=== PATIENT | male | born 1960 | race Caucasian/White ===

== ENCOUNTER 2017-07-04 13:41 | Outpatient (CLI) | payer BC ==
--- NOTE | 2017-07-04 14:32 | RAD ---
PA AND LATERAL CHEST: Date: 07/04/17 HISTORY: Cough and congestion. COMPARISON: 08/10/12. FINDINGS: Heart size is within normal limits. There are atherosclerotic changes of the aorta. The lungs are sathish ar of infiltrates. IMPRESSION: No active intrathoracic disease. POS: [facility]
== END 2017-07-04 13:42 | disposition home or self-care (01) ==
LOC: SCSRAD 13:41
PROVIDERS: ATTEND Family Medicine
DX: J20.9 Acute bronchitis, unspecified (principal)
CPT/HCPCS: 71046

== ENCOUNTER 2017-07-22 15:25 | Outpatient (CLI) | payer BC | END 2017-07-22 15:26 | disposition home or self-care (01) | LOC: BICULT 15:25 | PROVIDERS: ATTEND Family Medicine | DX: R31.29 Other microscopic hematuria (principal); N28.1 Cyst of kidney, acquired; N26.1 Atrophy of kidney (terminal) | CPT/HCPCS: 76770 ==

== ENCOUNTER 2018-04-20 08:30 | Inpatient (IN) | payer BC ==
[2018-05-02] MEDS ORDERED: Levofloxacin 500 mg/D5W 100 ml Premix Bag ONE (06:08)
[2018-05-02] MEDS ORDERED: Sodium Chloride 0.9% 100 ML ONE (06:08)
[2018-05-02] MEDS ORDERED: Tranexamic Acid 1,000 MG/10 ML VIAL ONE (06:08)
[2018-05-02] MEDS ORDERED: Vancomycin HCl 1.5 GM in Sodium Chloride 0.9% 250 ML 300 ML IVPB SCH ×2 (06:15→20:00)
[2018-05-02] MEDS ORDERED: Fentanyl 100 MCG/2 ML VIAL ONE (06:37)
[2018-05-02] MEDS ORDERED: Midazolam HCl 2 mg/2 ml Vial ONE (06:37)
[2018-05-02] MEDS ORDERED: Naloxone HCl 0.4 mg/ml Vial IVP PRN (07:30)
[2018-05-02] MEDS ORDERED: diphenhydrAMINE 50 MG/ML VIAL IM PRN (07:30)
[2018-05-02] MEDS ORDERED: Promethazine HCl 25 MG/ML VIAL IM PRN ×3 (07:30→11:03)
[2018-05-02] MEDS ORDERED: traMADol HCl 50 MG TAB PO PRN (07:30)
[2018-05-02] MEDS ORDERED: Zolpidem Tartrate 5 MG TAB PO PRN ×2 (07:30→11:03)
[2018-05-02] MEDS ORDERED: Promethazine HCl 25 MG SUPP PR PRN (07:30)
[2018-05-02] MEDS ORDERED: Bupivacaine 0.25% 10 ML VIAL EPIDURAL PRN (07:30)
[2018-05-02] MEDS ORDERED: diphenhydrAMINE 25 MG CAP PO PRN ×2 (07:30→11:03)
[2018-05-02] MEDS ORDERED: HYDROcodone/Acetaminophen 5/325 mg Tablet PO PRN (07:30)
[2018-05-02] MEDS ORDERED: Hydrocerin (Eucerin) Cream 120 gm Jar TOP PRN (07:30)
[2018-05-02] MEDS ORDERED: diphenhydrAMINE 50 MG/ML VIAL IVP PRN (07:30)
[2018-05-02] MEDS ORDERED: Ondansetron PF 4 MG/2 ML Vial IVP PRN ×2 (07:30→11:03)
[2018-05-02] MEDS ORDERED: Naloxone HCl 0.4 mg/ml Vial IV PRN (07:30)
[2018-05-02] MEDS ORDERED: Promethazine HCl 25 MG/ML VIAL SLOW IVP PRN (08:00)
[2018-05-02] MEDS ORDERED: Ondansetron HCl/PF 4 MG/2 ML Vial IVP PRN (08:00)
[2018-05-02] MEDS ORDERED: HYDROcodone/Acetaminophen 10/325 mg Tablet PO PRN ×2 (11:03)
[2018-05-02] MEDS ORDERED: Fentanyl 100 MCG/2 ML VIAL SLOW IVP PRN ×2 (11:03)
--- NOTE | 2018-05-02 13:11 | RAD ---
LEFT HIP THREE VIEWS: INDICATIONS: Postop left hip. COMPARISON: Prior exam dated 07/18/2012. FINDINGS: Since the comparison examination, there has been revision of the femoral prosthetic component of the left total hip arthroplasty. There are cerclage bands surrounding the proximal trochanteric portion and proximal femoral stent portions of the femoral prosthesis. The acetabular cup has also been revi sed and is now a Press-fit cup. There is soft tissue gas within the periarticular soft tissues. IMPRESSION: Revision of left total hip arthroplasty. POS: [facility]
[2018-05-02] MEDS ORDERED: fentaNYL 100 mcg/hour Patch TD SCH (14:00)
--- NOTE | 2018-05-02 14:35 | OP ---
DATE OF PROCEDURE: 05/02/2018 PREOPERATIVE DIAGNOSIS: Failed left total hip replacement. POSTOPERATIVE DIAGNOSIS: Failed left total hip replacement. PROCEDURE PERFORMED: Left total hip arthroplasty revision. OUTPATIENT FACILITY PHYSICAL THERAPIST: Roni Loza PA-C BLOOD LOSS: 500. SPECIMENS: None. DRAINS: None. COMPLICATIONS: None. IMPLANTS USED: A 155 x 16 Buddhist modular stem with a +20 body and -2.7 ceramic head with a MDM head and a size 56 acetabulum with MDM liner. DESCRIPTION OF PROCEDURE: The patient was taken to the operating room, where general anesthesia was induced. He was placed in a right lateral decubitus position. His left leg was prepped in sterile fashion. He had multiple scars in his leg that shows most appropriate scar for the incision, which was more anterior one. This was carried down. The IT band was divided distally and extended proximally. Self-retaining retractors was placed in the wound, taking down the anterior one-third of the abductor mechanism. Capsular tissue was excised. The hip was dislocated. Stem, although had a fluid wave, but was not super well fixed, could not be extracted using flexible osteotomes and stem extractor devices. Therefore, I performed extended trochanteric osteotomy. This facilitated removal of the stem. I then repaired the osteotomy and also placed a prophylactic cable around the intact part of the femur to ascertain the acetabulum. I removed the acetabular liner. I removed the screws and then used an Innomed cup extractor to remove the acetabulum. There was some bony erosion on the femur and around particularly the inferior aspect of the acetabulum. I reamed up to a size 57, impacted a 58 cup. We got good purchase and screw fixation. MDM liner was deployed. Attention was turned back to the femur. I placed a +10 head and neck replacement body and this gave a great leg length. However, his hip was unstable and external rotation in neutral position. I dislocated the hip. I made sure all scar tissue was removed from the posterior aspect of the acetabulum. I trimmed the posterior aspect of the greater trochanter as much as possible. There was really no significant osteophytes on the pelvis. Still the hip was unstable, so I had to go to a +20 body and this gave very good stability. However, his leg length was off. I used a -2.7 ceramic head, as this was the shortest head I could get for this implant. The ceramic head was impacted in place. The hip was reduced. Fixed the trochanter to the head and neck replacement body with Dall-Miles cables. Irrigation was performed. Abductors were repaired with #2 Vicryl. IT band was repaired with #2 Vicryl and #2 Quill, subcu closed with 0 Quill, and skin was closed with 2-0 Monoderm. Skin glue was applied and sterile dressing was applied. Job ID: [id number]
--- NOTE | 2018-05-02 14:37 | PDOC.PN ---
- Subjective Encounter Start Date: 05/02/18 Encounter Start Time: 14:30 Subjective: no sob or chest pain -: is post op, alert and oriented -: OT is here to work with him - Objective MAR Reviewed: Yes Vital Signs & Weight: Weight Weight 200 lb Phys Exam - Physical Examination HEENT: PERRLA, moist MMs Neck: no JVD, supple Respiratory: no wheezing, no rales Cardiovascular: RRR, no significant murmur Gastrointestinal: soft, non-tender, positive bowel sounds Musculoskeletal: no edema, pulses present left hip lat area dressing is clean Neurological: non-focal, moves all 4 limbs Psychiatric: normal affect, A&O x 3 Dx/Plan (1) s/p left hip total hip arthroplasty Status: Acute (2) GERD (gastroesophageal reflux disease) Code(s): K21.9 - GASTRO-ESOPHAGEAL REFLUX DISEASE WITHOUT ESOPHAGITIS Status: Chronic Qualifiers: Esophagitis presence: with esophagitis Qualified Code(s): K21.0 - Gastro- esophageal reflux disease with esophagitis (3) Dyslipidemia Code(s): E78.5 - HYPERLIPIDEMIA, UNSPECIFIED Status: Chronic (4) HTN (hypertension) Code(s): I10 - ESSENTIAL (PRIMARY) HYPERTENSION Status: Chronic Qualifiers: Hypertension type: essential hypertension Qualified Code(s): I10 - Essential (primary) hypertension - Plan post op recovering well -: continue tricor, norvasc and losartan -: hold hctz for now -: on asp bid, marcaine nr block, fentanyl prn -: will f/u * . Review of Systems - Medications/Allergies Allergies/Adverse Reactions: Allergies Allergy/AdvReac Type Severity Reaction Status Date / Time NSAIDS (Non-Steroidal Allergy stomach Verified 05/02/18 12:58 Anti-Inflamma ulcers Penicillins Allergy Hives Verified 05/02/18 12:58 Medications: Current Medications Acetaminophen (Tylenol) 650 mg PO Q4H PRN PRN Reason: Headache/Fever or Pain Hydrocodone Bitart/Acetaminophen ([place] 5/325) 1 tab PO Q4H PRN PRN Reason: Mild Pain 0-3 Hydrocodone Bitart/Acetaminophen ([place] 5/325) 2 tab PO Q4H PRN PRN Reason: For Moderate Pain 4-6 Hydrocodone Bitart/Acetaminophen ([place] 10/325) 1 tab PO Q4H PRN PRN Reason: Moderate Pain (4-6) Hydrocodone Bitart/Acetaminophen ([place] 10/325) 2 tab PO Q4H PRN PRN Reason: Severe Pain (7-10) Amlodipine Besylate (Norvasc) 5 mg PO QAM [facility] Aspirin (Ecotrin) 81 mg PO BID [facility] Bupivacaine HCl (Marcaine) 5 ml EPIDURAL ONE PRN PRN Reason: UNCONTROLLED PAIN Stop: 05/02/18 23:00 Diphenhydramine HCl (Benadryl) 25 mg IM Q3H PRN PRN Reason: Itching Diphenhydramine HCl (Benadryl) 25 mg IVP Q3H PRN PRN Reason: Itching Diphenhydramine HCl (Benadryl) 25 mg PO Q6H PRN PRN Reason: Itching Emollient Cream (Hydrocerin Cream) 0 gm TOP PRN PRN PRN Reason: Itching Fenofibrate (Tricor) 145 mg PO HS JAY[facility] Fentanyl (Sublimaze) 50 mcg SLOW IVP Q30MIN PRN PRN Reason: Moderate Pain (4-6) Fentanyl (Sublimaze) 100 mcg SLOW IVP Q1H PRN PRN Reason: Severe Pain (7-10) Fentanyl (Duragesic) 100 mcg TD Q2D [facility] Ferrous Gluconate (Fergon) 324 mg PO BID JAYME HCTZ/Losartan Potassium (Hyzaar 100/25) 1 tab PO QAM JAYME Fentanyl Citrate (Fentanyl/Bupivacaine) 100 mls @ 0 mls/hr EPIDURAL INF [facility] Levofloxacin 500 mg/ Device 100 mls @ 100 mls/hr IVPB Q24H [facility] Stop: 05/02/18 14:59 Sodium Chloride (Normal Saline 0.9%) 1,000 mls @ 100 mls/hr IV .Q10H JAYME Vancomycin HCl 1.5 gm/ Sodium (Chloride) 300 mls @ 200 mls/hr IVPB ONE [facility] Stop: 05/02/18 21:29 Iron/Minerals/Multivitamins (Theragran M) 1 tab PO DAILY J[facility] Loratadine (Claritin) 10 mg PO DAILY [facility] Miscellaneous Information (Communication Order-Pharmacy) 1 each FS ASDIR JAYME Naloxone HCl (Narcan) 0.2 mg IV Q5MIN PRN PRN Reason: RR <=8 OR OBTUNDED/UNAROUSABLE Naloxone HCl (Narcan) 0.1 mg IVP Q15MIN PRN PRN Reason: URINARY RETENTION Ondansetron HCl (Zofran) 4 mg IVP Q6H PRN PRN Reason: Nausea/Vomiting Pantoprazole Sodium (Protonix) 40 mg PO QAM JAYME [Testosterone] 1 (Pump) 0 each TOP DAILY JAYME Promethazine HCl (Phenergan) 12.5 mg IM Q4H PRN PRN Reason: Nausea Promethazine HCl (Phenergan Suppository) 25 mg MT Q4H PRN PRN Reason: Nausea/Vomiting Senna/Docusate Sodium (Senokot S) 2 tab PO BID [facility] Sodium Chloride (Flush - Normal Saline) 10 ml IVF PRN PRN PRN Reason: Saline Flush Tramadol HCl (Ultram) 50 mg PO Q6H PRN PRN Reason: Mild Pain 1-3 Tramadol HCl (Ultram) 100 mg PO Q6H PRN PRN Reason: Moderate Pain 4-6 Zolpidem Tartrate (Ambien) 5 mg PO HSPRN PRN PRN Reason: Insomnia
[2018-05-02] MEDS: Sodium Chloride 0.9% 1,000 ML IV SCH ×2 (15:12→23:42)
[2018-05-02] MEDS: HYDROcodone/Acetaminophen 5/325 mg Tablet PO PRN (16:02)
[2018-05-02] MEDS: Aspirin 81 mg Enteric Coated Tablet PO SCH (20:06)
[2018-05-02] MEDS: Senokot S 8.6-50 MG TAB PO SCH (20:06)
[2018-05-02] MEDS: Ferrous Gluconate 324 MG TAB PO SCH (20:07)
[2018-05-02] MEDS ORDERED: Lidocaine 1% PF 5 ML VIAL ONE (21:21)
[2018-05-02] MEDS ORDERED: PROPOFOL 200 MG/20 ML VIAL ONE (21:21)
[2018-05-02] MEDS ORDERED: Glycopyrrolate 0.2 MG/ML 5 ML SYRINGE ONE (21:21)
[2018-05-02] MEDS ORDERED: ePHEDrine/0.9% NaCl/PF SYRINGE 50 mg/10 ml ONE (21:21)
[2018-05-02] MEDS: Fenofibrate Nanocrystallized 145 MG TAB PO SCH (21:25)
[2018-05-02] MEDS: Acetaminophen 325 MG TAB PO PRN (22:52)
[2018-05-02] MEDS: Fentanyl/Bupivacaine 100 ML EPIDURAL SCH (23:30)
[2018-05-03] MEDS: Fentanyl/Bupivacaine 100 ML EPIDURAL SCH ×3 (04:04→22:58)
[2018-05-03 05:47] LABS: Hemoglobin 9.7 g/dL (14.0-18.0); Mean Corpuscular HGB CONC 33.2 g/dL (32.0-36.0); Mean Corpuscular Hemoglobin 28.9 pg (27.0-31.0); Mean Corpuscular Volume 87.1 fL (78.0-98.0); Mean Platelet Volume 7.9 fL (7.4-10.4); Platelet Count 211 thou/uL (130-400); RBC Distribution Width 13.2 % (11.5-14.5); Red Blood Cell (RBC) Count 3.36 mill/uL (4.70-6.10); White Blood Cell (WBC) Count 6.8 thou/uL (4.8-10.8)
[2018-05-03] MEDS: traMADol HCl 50 MG TAB PO PRN (06:11)
[2018-05-03] MEDS ORDERED: fentaNYL 100 mcg/hour Patch TD SCH ×2 (06:30→09:00)
[2018-05-03] MEDS ORDERED: Eucerin (Mineral Oil/Petrolatum,White) 30 gm Jar TOP PRN (07:40)
[2018-05-03] MEDS ORDERED: Artificial Tears 18 DROP/0.9 ML EA EYE PRN (07:40)
[2018-05-03] MEDS ORDERED: Loperamide HCl 2 MG CAP PO PRN (07:40)
[2018-05-03] MEDS ORDERED: hydrALAZINE 20 MG/ML VIAL SLOW IVP PRN (07:40)
[2018-05-03] MEDS ORDERED: Cepastat Lozenges 1 LOZ PO PRN (07:40)
[2018-05-03] MEDS ORDERED: Diabetic Tussin 200 MG/10 ML UDCUP PO PRN (07:40)
[2018-05-03] MEDS: HYDROcodone/Acetaminophen 5/325 mg Tablet PO PRN ×4 (08:07→22:10)
[2018-05-03] MEDS: Amlodipine 5 MG TAB PO SCH (08:18)
[2018-05-03] MEDS: Aspirin 81 mg Enteric Coated Tablet PO SCH ×2 (08:18→20:37)
[2018-05-03] MEDS: Senokot S 8.6-50 MG TAB PO SCH ×2 (08:20→20:37)
[2018-05-03] MEDS: Multivitamin W/ Minerals 1 TAB PO SCH (08:21)
[2018-05-03] MEDS: Ferrous Gluconate 324 MG TAB PO SCH ×2 (08:21→20:37)
[2018-05-03] MEDS ORDERED: PUMP TOP SCH (09:00)
[2018-05-03] MEDS ORDERED: [UNRECOGNIZED DRUG - REMARK] PO SCH (09:00)
[2018-05-03] MEDS ORDERED: TESTOSTERONE PUMP TOP SCH (09:00)
--- NOTE | 2018-05-03 09:46 | PDOC.PN ---
- Subjective Encounter Start Date: 05/03/18 Encounter Start Time: 08:20 -: old records requested/rev Patient seen and examined. No overnight events he has burning discomfort at surgical site, he has fever - Objective Resuscitation Status - Order Detail: 05/03/18 07:38 Resuscitation Status Routine Resuscitation Status: FULL: Full Resuscitation MAR Reviewed: Yes Vital Signs & Weight: Vital Signs (12 hours) Temp Pulse Resp BP Pulse Ox 05/03/18 08:32 99.6 F 86 18 112/67 93 L 05/03/18 08:18 91 05/03/18 04:15 99.8 F H 05/03/18 03:58 100.1 F H 91 22 H 112/68 94 L 05/03/18 00:27 100.5 F H 94 20 121/76 95 Weight Weight 200 lb I&O: 05/02/18 05/03/18 05/04/18 06:59 06:59 06:59 Intake Total 3450 Output Total 3500 Balance -50 Result Diagrams: 05/03/18 05:23 Radiology Reviewed by me: Yes (Hip xray reviewed) Phys Exam - Physical Examination Constitutional: NAD HEENT: PERRLA, moist MMs, sclera anicteric Neck: no JVD, supple Respiratory: no wheezing, no rales, no rhonchi Cardiovascular: RRR, no significant murmur, no rub Gastrointestinal: soft, non-tender, no distention, positive bowel sounds Musculoskeletal: no edema, pulses present surgical site with dressing, epidural in place guzman+ Neurological: non-focal, normal sensation, moves all 4 limbs Lymphatic: no nodes Psychiatric: normal affect, A&O x 3 Skin: no rash, normal turgor Dx/Plan (1) Anemia, normocytic normochromic Code(s): D64.9 - ANEMIA, UNSPECIFIED Status: Acute Comment: post operative blood loss (2) Fever Code(s): R50.9 - FEVER, UNSPECIFIED Status: Acute (3) Status post total hip replacement, left Code(s): Z96.642 - PRESENCE OF LEFT ARTIFICIAL HIP JOINT Status: Acute (4) Dyslipidemia Code(s): E78.5 - HYPERLIPIDEMIA, UNSPECIFIED Status: Chronic (5) GERD (gastroesophageal reflux disease) Code(s): K21.9 - GASTRO-ESOPHAGEAL REFLUX DISEASE WITHOUT ESOPHAGITIS Status: Chronic Qualifiers: Esophagitis presence: with esophagitis Qualified Code(s): K21.0 - Gastro- esophageal reflux disease with esophagitis (6) HTN (hypertension) Code(s): I10 - ESSENTIAL (PRIMARY) HYPERTENSION Status: Chronic Qualifiers: Hypertension type: essential hypertension Qualified Code(s): I10 - Essential (primary) hypertension (7) Tobacco abuse Code(s): Z72.0 - TOBACCO USE Status: Chronic - Plan cont current plan of care, PT/OT * continue aspirin for DVT prophylaxis * continue PT as per [facility] protocol treatment * epidural as per anesthesia * discharge per primary team * medically stable * medication reviewed as below * symptomatic treatment * pain controlled * code status addressed and he is full code.. * home medication reconciled * hold BP meds for SBP <120 * if recurrent fever, then will check culture Review of Systems - Review of Systems Constitutional: fever. negative: chills, sweats, weakness, malaise, other ENT: negative: Ear Pain, Ear Discharge, Nose Pain, Nose Discharge, Nose Congestion, Mouth Pain, Mouth Swelling, Throat Pain, Throat Swelling, Other Respiratory: negative: Cough, Dry, Shortness of Breath, Hemoptysis, SOB with Excertion, Pleuritic Pain, Sputum, Wheezing Cardiovascular: negative: chest pain, palpitations, orthopnea, paroxysmal nocturnal dyspnea, edema, light headedness, other Gastrointestinal: negative: Nausea, Vomiting, Abdominal Pain, Diarrhea, Constipation, Melena, Hematochezia, Other Genitourinary: negative: Dysuria, Frequency, Incontinence, Hematuria, Retention , Other Musculoskeletal: negative: Neck Pain, Shoulder Pain, Arm Pain, Back Pain, Hand Pain, Leg Pain, Foot Pain, Other Skin: negative: Rash, Lesions, Chun, Bruising, Other - Medications/Allergies Allergies/Adverse Reactions: Allergies Allergy/AdvReac Type Severity Reaction Status Date / Time NSAIDS (Non-Steroidal Allergy stomach Verified 05/02/18 12:58 Anti-Inflamma ulcers Penicillins Allergy Hives Verified 05/02/18 12:58 Medications: Current Medications Acetaminophen (Tylenol) 650 mg PO Q4H PRN PRN Reason: Headache/Fever or Pain Last Admin: 05/02/18 22:52 Dose: 650 mg Hydrocodone Bitart/Acetaminophen ([place] 5/325) 1 tab PO Q4H PRN PRN Reason: Mild Pain 0-3 Hydrocodone Bitart/Acetaminophen ([place] 5/325) 2 tab PO Q4H PRN PRN Reason: For Moderate Pain 4-6 Last Admin: 05/03/18 08:07 Dose: 2 tab Amlodipine Besylate (Norvasc) 5 mg PO QAM [facility] Last Admin: 05/03/18 08:18 Dose: 5 mg Artificial Tears (Tears Naturale) 2 drop EA EYE PRN PRN PRN Reason: Dry Eyes Aspirin (Ecotrin) 81 mg PO BID [facility] Last Admin: 05/03/18 08:18 Dose: 81 mg Diphenhydramine HCl (Benadryl) 25 mg IM Q3H PRN PRN Reason: Itching Diphenhydramine HCl (Benadryl) 25 mg IVP Q3H PRN PRN Reason: Itching Diphenhydramine HCl (Benadryl) 25 mg PO Q6H PRN PRN Reason: Itching Fenofibrate (Tricor) 145 mg PO HS [facility] Last Admin: 05/02/18 21:25 Dose: Not Given Fentanyl (Duragesic) 100 mcg TD Q3D [facility] Last Admin: 05/03/18 06:53 Dose: 100 mcg Ferrous Gluconate (Fergon) 324 mg PO BID [facility] Last Admin: 05/03/18 08:21 Dose: Not Given Guaifenesin (Robitussin Sf) 200 mg PO Q4H PRN PRN Reason: Cough HCTZ/Losartan Potassium ([facility]ar 100/25) [facility] Hydralazine HCl (Apresoline) 10 mg SLOW IVP Q4H PRN PRN Reason: SBP > 180 and HR < 70 Fentanyl Citrate (Fentanyl/Bupivacaine) 100 mls @ 8 mls/hr EPIDURAL INF [facility] Last Admin: 05/02/18 23:30 Dose: 100 mls Sodium Chloride (Normal Saline 0.9%) 1,000 mls @ 100 mls/hr IV .Q10H [facility] Last Admin: 05/02/18 23:42 Dose: 1,000 mls Iron/Minerals/Multivitamins (Theragran M) 1 tab PO DAILY [facility] Last Admin: 05/03/18 08:21 Dose: Not Given Loperamide HCl (Imodium) 2 mg PO PRN PRN PRN Reason: Diarrhea/Loose Stools Loratadine (Claritin) 10 mg PO DAILY [facility] Mineral Oil/White Petrolatum (Eucerin Cream) 0 gm TOP BIDPRN PRN PRN Reason: Dry Skin Miscellaneous Information (Communication Order-Pharmacy) 1 each FS ASDIR [facility] Naloxone HCl (Narcan) 0.2 mg IV Q5MIN PRN PRN Reason: RR <=8 OR OBTUNDED/UNAROUSABLE Naloxone HCl (Narcan) 0.1 mg IVP Q15MIN PRN PRN Reason: URINARY RETENTION Ondansetron HCl (Zofran) 4 mg IVP Q6H PRN PRN Reason: Nausea/Vomiting Last Admin: 05/02/18 21:21 Dose: 4 mg Pantoprazole Sodium (Protonix) 40 mg PO QAM [facility] Promethazine HCl (Phenergan) 12.5 mg IM Q4H PRN PRN Reason: Nausea Last Admin: 05/02/18 23:40 Dose: 12.5 mg Promethazine HCl (Phenergan Suppository) 25 mg MT Q4H PRN PRN Reason: Nausea/Vomiting Senna/Docusate Sodium (Senokot S) 2 tab PO BID [facility] Last Admin: 05/03/18 08:20 Dose: Not Given Sodium Chloride (Flush - Normal Saline) 10 ml IVF PRN PRN PRN Reason: Saline Flush Last Admin: 05/02/18 21:22 Dose: 10 ml Throat Lozenges (Cepastat Lozenges) 1 ethan PO Q2H PRN PRN Reason: Sore Throat Tramadol HCl (Ultram) 50 mg PO Q6H PRN PRN Reason: Mild Pain 1-3 Tramadol HCl (Ultram) 100 mg PO Q6H PRN PRN Reason: Moderate Pain 4-6 Last Admin: 05/03/18 06:11 Dose: 100 mg Zolpidem Tartrate (Ambien) 5 mg PO HSPRN PRN PRN Reason: Insomnia
[2018-05-03] MEDS: Losartan/Hydrochlorothiazide 100 mg/25 mg Tablet PO SCH (11:29)
[2018-05-03] MEDS: Sodium Chloride 0.9% 1,000 ML IV SCH ×2 (12:42→12:44)
[2018-05-03] MEDS: Pantoprazole 40 MG GRANULES PACKET PO SCH (12:44)
[2018-05-03] MEDS: Loratadine 10 MG TAB PO SCH (12:44)
[2018-05-03] MEDS: Fenofibrate Nanocrystallized 145 MG TAB PO SCH (20:37)
[2018-05-04] MEDS: HYDROcodone/Acetaminophen 5/325 mg Tablet PO PRN ×3 (02:13→10:17)
[2018-05-04] MEDS: Sodium Chloride 0.9% 1,000 ML IV SCH ×3 (02:51→22:11)
[2018-05-04] MEDS: Fentanyl/Bupivacaine 100 ML EPIDURAL SCH ×2 (08:58→23:09)
[2018-05-04] MEDS: traMADol HCl 50 MG TAB PO PRN (09:11)
[2018-05-04] MEDS: Amlodipine 5 MG TAB PO SCH (09:14)
[2018-05-04] MEDS: Losartan/Hydrochlorothiazide 100 mg/25 mg Tablet PO SCH (09:14)
[2018-05-04] MEDS: Aspirin 81 mg Enteric Coated Tablet PO SCH ×2 (09:14→21:20)
[2018-05-04] MEDS: Multivitamin W/ Minerals 1 TAB PO SCH (09:14)
[2018-05-04] MEDS: Ferrous Gluconate 324 MG TAB PO SCH ×2 (09:15→21:20)
[2018-05-04] MEDS: Loratadine 10 MG TAB PO SCH (09:15)
[2018-05-04] MEDS: Senokot S 8.6-50 MG TAB PO SCH ×2 (09:15→21:19)
[2018-05-04] MEDS: Pantoprazole 40 MG GRANULES PACKET PO SCH (09:17)
[2018-05-04 09:57] LABS: Hemoglobin 9.5 g/dL (14.0-18.0); Mean Corpuscular HGB CONC 31.9 g/dL (32.0-36.0); Mean Corpuscular Hemoglobin 28.5 pg (27.0-31.0); Mean Corpuscular Volume 89.5 fL (78.0-98.0); Mean Platelet Volume 8.2 fL (7.4-10.4); Platelet Count 218 thou/uL (130-400); RBC Distribution Width 13.4 % (11.5-14.5); Red Blood Cell (RBC) Count 3.33 mill/uL (4.70-6.10); White Blood Cell (WBC) Count 8.1 thou/uL (4.8-10.8)
--- NOTE | 2018-05-04 11:41 | PDOC.PN ---
- Subjective Encounter Start Date: 05/04/18 Encounter Start Time: 09:00 his fever is tending down, sore throat improving, Patient seen and examined. No new complaints. No overnight events - Objective Resuscitation Status - Order Detail: 05/03/18 07:38 Resuscitation Status Routine Resuscitation Status: FULL: Full Resuscitation MAR Reviewed: Yes Vital Signs & Weight: Vital Signs (12 hours) Temp Pulse Resp BP Pulse Ox 05/04/18 10:41 99.7 F H 88 18 113/67 92 L 05/04/18 09:14 86 05/04/18 07:34 99.6 F 86 18 123/75 93 L 05/04/18 07:33 95 05/04/18 04:00 99.3 F 83 18 121/82 94 L 05/04/18 00:00 100.4 F H 93 18 121/77 95 Weight Weight 200 lb I&O: 05/03/18 05/04/18 05/05/18 06:59 06:59 06:59 Intake Total 3450 2380 Output Total 3500 1500 Balance -50 880 Result Diagrams: 05/04/18 07:34 Phys Exam - Physical Examination Constitutional: NAD HEENT: PERRLA, moist MMs, sclera anicteric Neck: no JVD, supple Respiratory: no wheezing, no rales, no rhonchi Cardiovascular: RRR, no significant murmur, no rub Gastrointestinal: soft, non-tender, no distention, positive bowel sounds Musculoskeletal: no edema, pulses present epidural and guzman in place Neurological: non-focal, normal sensation, moves all 4 limbs Lymphatic: no nodes Psychiatric: normal affect, A&O x 3 Skin: no rash, normal turgor Dx/Plan (1) Anemia, normocytic normochromic Code(s): D64.9 - ANEMIA, UNSPECIFIED Status: Acute Comment: post operative blood loss (2) Fever Code(s): R50.9 - FEVER, UNSPECIFIED Status: Acute (3) Status post total hip replacement, left Code(s): Z96.642 - PRESENCE OF LEFT ARTIFICIAL HIP JOINT Status: Acute (4) Dyslipidemia Code(s): E78.5 - HYPERLIPIDEMIA, UNSPECIFIED Status: Chronic (5) GERD (gastroesophageal reflux disease) Code(s): K21.9 - GASTRO-ESOPHAGEAL REFLUX DISEASE WITHOUT ESOPHAGITIS Status: Chronic Qualifiers: Esophagitis presence: with esophagitis Qualified Code(s): K21.0 - Gastro- esophageal reflux disease with esophagitis (6) HTN (hypertension) Code(s): I10 - ESSENTIAL (PRIMARY) HYPERTENSION Status: Chronic Qualifiers: Hypertension type: essential hypertension Qualified Code(s): I10 - Essential (primary) hypertension (7) Tobacco abuse Code(s): Z72.0 - TOBACCO USE Status: Chronic - Plan cont current plan of care, plan discussed w/ family, PT/OT * he does not have any clinical reason for his fever, suspecting reactive fever * medication reviewed as below * symptomatic treatment * discussed with * stable medically * pain controlled. Review of Systems - Review of Systems ENT: negative: Ear Pain, Ear Discharge, Nose Pain, Nose Discharge, Nose Congestion, Mouth Pain, Mouth Swelling, Throat Pain, Throat Swelling, Other Respiratory: negative: Cough, Dry, Shortness of Breath, Hemoptysis, SOB with Excertion, Pleuritic Pain, Sputum, Wheezing Cardiovascular: negative: chest pain, palpitations, orthopnea, paroxysmal nocturnal dyspnea, edema, light headedness, other Gastrointestinal: negative: Nausea, Vomiting, Abdominal Pain, Diarrhea, Constipation, Melena, Hematochezia, Other Genitourinary: negative: Dysuria, Frequency, Incontinence, Hematuria, Retention , Other Musculoskeletal: negative: Neck Pain, Shoulder Pain, Arm Pain, Back Pain, Hand Pain, Leg Pain, Foot Pain, Other Skin: negative: Rash, Lesions, Chun, Bruising, Other - Medications/Allergies Allergies/Adverse Reactions: Allergies Allergy/AdvReac Type Severity Reaction Status Date / Time NSAIDS (Non-Steroidal Allergy stomach Verified 05/02/18 12:58 Anti-Inflamma ulcers Penicillins Allergy Hives Verified 05/02/18 12:58 Medications: Current Medications Acetaminophen (Tylenol) 650 mg PO Q4H PRN PRN Reason: Headache/Fever or Pain Last Admin: 05/02/18 22:52 Dose: 650 mg Hydrocodone Bitart/Acetaminophen ([place] 5/325) 1 tab PO Q4H PRN PRN Reason: Mild Pain 0-3 Hydrocodone Bitart/Acetaminophen ([place] 5/325) 2 tab PO Q4H PRN PRN Reason: For Moderate Pain 4-6 Last Admin: 05/04/18 10:17 Dose: 2 tab Amlodipine Besylate (Norvasc) 5 mg PO QAM [facility] Last Admin: 05/04/18 09:14 Dose: 5 mg Artificial Tears (Tears Naturale) 2 drop EA EYE PRN PRN PRN Reason: Dry Eyes Aspirin (Ecotrin) 81 mg PO BID [facility] Last Admin: 05/04/18 09:14 Dose: 81 mg Diphenhydramine HCl (Benadryl) 25 mg IM Q3H PRN PRN Reason: Itching Diphenhydramine HCl (Benadryl) 25 mg IVP Q3H PRN PRN Reason: Itching Diphenhydramine HCl (Benadryl) 25 mg PO Q6H PRN PRN Reason: Itching Fenofibrate (Tricor) 145 mg PO HS [facility] Last Admin: 05/03/18 20:37 Dose: 145 mg Fentanyl (Duragesic) 100 mcg TD Q3D [facility] Last Admin: 05/03/18 06:53 Dose: 100 mcg Ferrous Gluconate (Fergon) 324 mg PO BID [facility] Last Admin: 05/04/18 09:15 Dose: 324 mg Guaifenesin (Robitussin Sf) 200 mg PO Q4H PRN PRN Reason: Cough HCTZ/Losartan Potassium (Hyzaar 100/25) 1 tab PO QAM [facility] Last Admin: 05/04/18 09:14 Dose: 1 tab Hydralazine HCl (Apresoline) 10 mg SLOW IVP Q4H PRN PRN Reason: SBP > 180 and HR < 70 Fentanyl Citrate (Fentanyl/Bupivacaine) 100 mls @ 10 mls/hr EPIDURAL INF [facility] Last Admin: 05/04/18 08:58 Dose: 100 mls Sodium Chloride (Normal Saline 0.9%) 1,000 mls @ 100 mls/hr IV .Q10H [facility] Last Admin: 05/04/18 02:51 Dose: Not Given Iron/Minerals/Multivitamins (Theragran M) 1 tab PO DAILY [facility] Last Admin: 05/04/18 09:14 Dose: 1 tab Loperamide HCl (Imodium) 2 mg PO PRN PRN PRN Reason: Diarrhea/Loose Stools Loratadine (Claritin) 10 mg PO DAILY [facility] Last Admin: 05/04/18 09:15 Dose: 10 mg Mineral Oil/White Petrolatum (Eucerin Cream) 0 gm TOP BIDPRN PRN PRN Reason: Dry Skin Miscellaneous Information (Communication Order-Pharmacy) 1 each FS ASDIR [facility]AY[facility] Naloxone HCl (Narcan) 0.2 mg IV Q5MIN PRN PRN Reason: RR <=8 OR OBTUNDED/UNAROUSABLE Naloxone HCl (Narcan) 0.1 mg IVP Q15MIN PRN PRN Reason: URINARY RETENTION Ondansetron HCl (Zofran) 4 mg IVP Q6H PRN PRN Reason: Nausea/Vomiting Last Admin: 05/02/18 21:21 Dose: 4 mg Pantoprazole Sodium (Protonix) 40 mg PO QAM [facility] Last Admin: 05/04/18 09:17 Dose: 40 mg Promethazine HCl (Phenergan) 12.5 mg IM Q4H PRN PRN Reason: Nausea Last Admin: 05/02/18 23:40 Dose: 12.5 mg Promethazine HCl (Phenergan Suppository) 25 mg HI Q4H PRN PRN Reason: Nausea/Vomiting Senna/Docusate Sodium (Senokot S) 2 tab PO BID [facility] Last Admin: 05/04/18 09:15 Dose: 2 tab Sodium Chloride (Flush - Normal Saline) 10 ml IVF PRN PRN PRN Reason: Saline Flush Last Admin: 05/02/18 21:22 Dose: 10 ml Throat Lozenges (Cepastat Lozenges) 1 ethan PO Q2H PRN PRN Reason: Sore Throat Tramadol HCl (Ultram) 50 mg PO Q6H PRN PRN Reason: Mild Pain 1-3 Tramadol HCl (Ultram) 100 mg PO Q6H PRN PRN Reason: Moderate Pain 4-6 Last Admin: 05/04/18 09:11 Dose: 100 mg Zolpidem Tartrate (Ambien) 5 mg PO HSPRN PRN PRN Reason: Insomnia
[2018-05-04] MEDS ORDERED: HYDROcodone/Acetaminophen 10/325 mg Tablet PO PRN ×2 (14:45→14:46)
[2018-05-04 14:53] VITALS: BMI 26.4
[2018-05-04] MEDS: HYDROcodone/Acetaminophen 10/325 mg Tablet PO PRN ×3 (15:02→23:26)
[2018-05-04] MEDS: Acetaminophen 325 MG TAB PO PRN (21:19)
[2018-05-04] MEDS: Fenofibrate Nanocrystallized 145 MG TAB PO SCH (21:20)
[2018-05-05] MEDS: HYDROcodone/Acetaminophen 10/325 mg Tablet PO PRN ×3 (03:49→14:21)
[2018-05-05 08:36] LABS: Hemoglobin 9.5 g/dL (14.0-18.0); Mean Corpuscular HGB CONC 33.2 g/dL (32.0-36.0); Mean Corpuscular Hemoglobin 29.4 pg (27.0-31.0); Mean Corpuscular Volume 88.5 fL (78.0-98.0); Mean Platelet Volume 8.6 fL (7.4-10.4); Platelet Count 234 thou/uL (130-400); RBC Distribution Width 13.1 % (11.5-14.5); Red Blood Cell (RBC) Count 3.23 mill/uL (4.70-6.10); White Blood Cell (WBC) Count 9.2 thou/uL (4.8-10.8)
[2018-05-05] MEDS: Losartan/Hydrochlorothiazide 100 mg/25 mg Tablet PO SCH (08:43)
[2018-05-05] MEDS: Ferrous Gluconate 324 MG TAB PO SCH (08:44)
[2018-05-05] MEDS: Loratadine 10 MG TAB PO SCH (08:44)
[2018-05-05] MEDS: Multivitamin W/ Minerals 1 TAB PO SCH (08:45)
[2018-05-05] MEDS: Amlodipine 5 MG TAB PO SCH (08:45)
[2018-05-05] MEDS: Aspirin 81 mg Enteric Coated Tablet PO SCH (08:46)
[2018-05-05] MEDS: Senokot S 8.6-50 MG TAB PO SCH (08:46)
[2018-05-05] MEDS: Pantoprazole 40 MG GRANULES PACKET PO SCH (08:46)
[2018-05-05] MEDS: Sodium Chloride 0.9% 1,000 ML IV SCH (08:54)
[2018-05-05] MEDS ORDERED: fentaNYL 100 mcg/hour Patch TD SCH (10:30)
--- NOTE | 2018-05-05 11:34 | DIS ---
DATE OF ADMISSION: 05/02/2018 DATE OF DISCHARGE: 05/05/2018 DISCHARGE SUMMARY/PROGRESS NOTE/TRANSFER OF CARE NOTE PRIMARY CARE PHYSICIAN: Virginia Taylor MD DISCHARGE DISPOSITION: Home. PRIMARY DISCHARGE DIAGNOSES: 1. Status post left total hip replacement. 2. Acute febrile illness. SECONDARY DISCHARGE DIAGNOSES: 1. Tobacco abuse disorder. 2. Hypertension. 3. Gastroesophageal reflux disease. 4. Dyslipidemia. 5. Normocytic normochromic anemia. PRIMARY PROCEDURE/OPERATION: Left hip replacement by Dr. De La Fuente. RADIOLOGICAL INVESTIGATION: Hip x-ray. SIGNIFICANT LABORATORY DATA: WBC 9.2, hemoglobin 9.5, and platelet 234. DISCHARGE MEDICATION: 1. Levofloxacin 500 mg p.o. daily for 5 days. 2. Aspirin 81 mg p.o. b.i.d. for DVT prophylaxis. 3. [place] 10 one or two tablets q.6h hourly p.r.n. for pain. 4. Norvasc 5 mg p.o. daily. 5. Cetirizine 10 mg p.o. daily. 6. TriCor 145 mg p.o. at bedtime. 7. Fentanyl 100 mcg transdermal every three days. 8. Losartan with hydrochlorothiazide 1 tablet p.o. daily. 9. Protonix 40 mg p.o. daily. 10. Testosterone via pump. CONTRAINDICATION: None. CODE STATUS: Full code. INPATIENT OPTOMETRIST PRESIDENT/PRACTICE OWNER: Dr. De La Fuente was primary while in the hospital. Sound Team was consulted for medical management. TEST RESULTS PENDING ON DISCHARGE: None. ALLERGIES: NSAIDS AND PENICILLIN. DISCHARGE PLAN: Posthospital, the patient will follow up with primary care physician in one week. The patient has appointment with Dr. De La Fuente on May 17, 2018, at 2:15 p.m. HOSPITAL COURSE: A 58-year-old male with above-mentioned medical problem, who was electively admitted by Dr. De La Fuente for left hip replacement, which was done on May 02, 2018. Postoperatively, Sound Team was consulted for medical comanagement. The patient's medical problems remained stable. We continued all his home medications while in the hospital. He was given aspirin for DVT prophylaxis. He had epidural for pain control. He did relatively well with PT/OT protocol while in the hospital. The patient had a febrile illness while in hospital, but the patient was continuously getting fever while in hospital and that is why for benefit of doubt, we gave him prescription for levofloxacin upon discharge for 5 more days. The patient is seen and examined at bedside today. REVIEW OF SYSTEMS: All review of system reviewed with him and negative. PHYSICAL EXAMINATION: VITAL SIGNS: Currently; temperature 99.4, pulse 60, respiratory rate 18, saturation 98% on room air, blood pressure 116/71, and weight 200 pounds. GENERAL: The patient is currently alert, awake. No obvious acute distress. HEENT: Head; normocephalic, atraumatic. Eyes; pupils round and reactive to light. Extraocular muscle intact. ENT; oropharynx within normal limits. Moist mucous membranes. No oral lesion. No pharyngeal erythema. No exudate. NECK: Supple. No JVD. No thyromegaly. No carotid bruit. No jugular venous distention. LUNGS: Clear to auscultation without any rhonchi or rales. CARDIAC: S1 and S2, regular without any murmur. ABDOMEN: Soft and benign without any tenderness. EXTREMITIES: No edema. NEUROLOGIC: Nonfocal examination. Surgical site is clean and healthy. The patient is planned for discharge by primary team and we will sign off. Job ID: [id number]
--- NOTE | 2018-05-05 11:35 | PDOC.PN ---
- Subjective Encounter Start Date: 05/05/18 Encounter Start Time: 10:00 Patient seen and examined. No new complaints. No overnight events - Objective Resuscitation Status - Order Detail: 05/03/18 07:38 Resuscitation Status Routine Resuscitation Status: FULL: Full Resuscitation MAR Reviewed: Yes Vital Signs & Weight: Vital Signs (12 hours) Temp Pulse Resp BP Pulse Ox 05/05/18 08:45 60 05/05/18 07:34 99.4 F 60 18 116/71 98 05/05/18 04:31 97.9 F 60 20 118/72 98 05/05/18 00:00 99.1 F 55 L 20 95/57 L 98 Weight Weight 200 lb I&O: 05/04/18 05/05/18 05/06/18 06:59 06:59 06:59 Intake Total 2380 1650 Output Total 1500 2000 Balance 880 -350 Result Diagrams: 05/05/18 08:01 Phys Exam - Physical Examination Constitutional: NAD HEENT: PERRLA, moist MMs, sclera anicteric Neck: no JVD, supple Respiratory: no wheezing, no rales, no rhonchi Cardiovascular: RRR, no significant murmur, no rub Gastrointestinal: soft, non-tender, no distention, positive bowel sounds Musculoskeletal: no edema, pulses present Neurological: non-focal, normal sensation, moves all 4 limbs Lymphatic: no nodes Psychiatric: normal affect, A&O x 3 Skin: no rash, normal turgor Dx/Plan (1) Anemia, normocytic normochromic Code(s): D64.9 - ANEMIA, UNSPECIFIED Status: Acute Comment: post operative blood loss (2) Fever Code(s): R50.9 - FEVER, UNSPECIFIED Status: Acute (3) Status post total hip replacement, left Code(s): Z96.642 - PRESENCE OF LEFT ARTIFICIAL HIP JOINT Status: Acute (4) Dyslipidemia Code(s): E78.5 - HYPERLIPIDEMIA, UNSPECIFIED Status: Chronic (5) GERD (gastroesophageal reflux disease) Code(s): K21.9 - GASTRO-ESOPHAGEAL REFLUX DISEASE WITHOUT ESOPHAGITIS Status: Chronic Qualifiers: Esophagitis presence: with esophagitis Qualified Code(s): K21.0 - Gastro- esophageal reflux disease with esophagitis (6) HTN (hypertension) Code(s): I10 - ESSENTIAL (PRIMARY) HYPERTENSION Status: Chronic Qualifiers: Hypertension type: essential hypertension Qualified Code(s): I10 - Essential (primary) hypertension (7) Tobacco abuse Code(s): Z72.0 - TOBACCO USE Status: Chronic - Plan cont current plan of care * medication reviewed as below * symptomatic treatment * see discharge yojanay. Review of Systems - Review of Systems ENT: negative: Ear Pain, Ear Discharge, Nose Pain, Nose Discharge, Nose Congestion, Mouth Pain, Mouth Swelling, Throat Pain, Throat Swelling, Other Respiratory: negative: Cough, Dry, Shortness of Breath, Hemoptysis, SOB with Excertion, Pleuritic Pain, Sputum, Wheezing Cardiovascular: negative: chest pain, palpitations, orthopnea, paroxysmal nocturnal dyspnea, edema, light headedness, other Gastrointestinal: negative: Nausea, Vomiting, Abdominal Pain, Diarrhea, Constipation, Melena, Hematochezia, Other Genitourinary: negative: Dysuria, Frequency, Incontinence, Hematuria, Retention , Other Musculoskeletal: negative: Neck Pain, Shoulder Pain, Arm Pain, Back Pain, Hand Pain, Leg Pain, Foot Pain, Other Skin: negative: Rash, Lesions, Chun, Bruising, Other - Medications/Allergies Allergies/Adverse Reactions: Allergies Allergy/AdvReac Type Severity Reaction Status Date / Time NSAIDS (Non-Steroidal Allergy stomach Verified 05/02/18 12:58 Anti-Inflamma ulcers Penicillins Allergy Hives Verified 05/02/18 12:58 Medications: Current Medications Acetaminophen (Tylenol) 650 mg PO Q4H PRN PRN Reason: Headache/Fever or Pain Last Admin: 05/04/18 21:19 Dose: 650 mg Hydrocodone Bitart/Acetaminophen ([place] 10/325) 1 tab PO Q4H PRN PRN Reason: Mild-Moderate Pain (1-4) Hydrocodone Bitart/Acetaminophen ([place] 10/325) 2 tab PO Q4H PRN PRN Reason: Moderate to Severe Pain (5-10) Last Admin: 05/05/18 08:46 Dose: 2 tab Amlodipine Besylate (Norvasc) 5 mg PO QAM [facility] Last Admin: 05/05/18 08:45 Dose: 5 mg Artificial Tears (Tears Naturale) 2 drop EA EYE PRN PRN PRN Reason: Dry Eyes Aspirin (Ecotrin) 81 mg PO BID [facility] Last Admin: 05/05/18 08:46 Dose: 81 mg Diphenhydramine HCl (Benadryl) 25 mg IM Q3H PRN PRN Reason: Itching Diphenhydramine HCl (Benadryl) 25 mg IVP Q3H PRN PRN Reason: Itching Diphenhydramine HCl (Benadryl) 25 mg PO Q6H PRN PRN Reason: Itching Fenofibrate (Tricor) 145 mg PO HS [facility] Last Admin: 05/04/18 21:20 Dose: 145 mg Fentanyl (Duragesic) 100 mcg TD NOW [facility] Stop: 05/08/18 10:29 Last Admin: 05/05/18 10:58 Dose: 100 mcg Ferrous Gluconate (Fergon) 324 mg PO BID [facility] Last Admin: 05/05/18 08:44 Dose: 324 mg Guaifenesin (Robitussin Sf) 200 mg PO Q4H PRN PRN Reason: Cough HCTZ/Losartan Potassium (Hyzaar 100/25) 1 tab PO QAM [facility] Last Admin: 05/05/18 08:43 Dose: 1 tab Hydralazine HCl (Apresoline) 10 mg SLOW IVP Q4H PRN PRN Reason: SBP > 180 and HR < 70 Sodium Chloride (Normal Saline 0.9%) 1,000 mls @ 100 mls/hr IV .Q10H [facility] Last Admin: 05/05/18 08:54 Dose: Not Given Iron/Minerals/Multivitamins (Theragran M) 1 tab PO DAILY [facility] Last Admin: 05/05/18 08:45 Dose: 1 tab Loperamide HCl (Imodium) 2 mg PO PRN PRN PRN Reason: Diarrhea/Loose Stools Loratadine (Claritin) 10 mg PO DAILY [facility] Last Admin: 05/05/18 08:44 Dose: 10 mg Mineral Oil/White Petrolatum (Eucerin Cream) 0 gm TOP BIDPRN PRN PRN Reason: Dry Skin Miscellaneous Information (Communication Order-Pharmacy) 1 each FS ASDIR [facility] Naloxone HCl (Narcan) 0.2 mg IV Q5MIN PRN PRN Reason: RR <=8 OR OBTUNDED/UNAROUSABLE Naloxone HCl (Narcan) 0.1 mg IVP Q15MIN PRN PRN Reason: URINARY RETENTION Ondansetron HCl (Zofran) 4 mg IVP Q6H PRN PRN Reason: Nausea/Vomiting Last Admin: 05/02/18 21:21 Dose: 4 mg Pantoprazole Sodium (Protonix) 40 mg PO QAM [facility] Last Admin: 05/05/18 08:46 Dose: 40 mg Promethazine HCl (Phenergan) 12.5 mg IM Q4H PRN PRN Reason: Nausea Last Admin: 05/02/18 23:40 Dose: 12.5 mg Promethazine HCl (Phenergan Suppository) 25 mg MT Q4H PRN PRN Reason: Nausea/Vomiting Senna/Docusate Sodium (Senokot S) 2 tab PO BID [facility] Last Admin: 05/05/18 08:46 Dose: 2 tab Sodium Chloride (Flush - Normal Saline) 10 ml IVF PRN PRN PRN Reason: Saline Flush Last Admin: 05/02/18 21:22 Dose: 10 ml Throat Lozenges (Cepastat Lozenges) 1 ethan PO Q2H PRN PRN Reason: Sore Throat Tramadol HCl (Ultram) 50 mg PO Q6H PRN PRN Reason: Mild Pain 1-3 Tramadol HCl (Ultram) 100 mg PO Q6H PRN PRN Reason: Moderate Pain 4-6 Last Admin: 05/04/18 09:11 Dose: 100 mg Zolpidem Tartrate (Ambien) 5 mg PO HSPRN PRN PRN Reason: Insomnia
[2018-05-05 16:02] VITALS: BP 113/75; TEMP 100.2
== END 2018-05-05 17:05 | disposition home or self-care (01) | DRG 467 ==
LOC: SJJU 05-02 05:38
PROVIDERS: ADMIT Orthopaedic Surgery; ATTEND Orthopaedic Surgery
PROC: 0SRB04A Replacement of Left Hip Joint with Ceramic on Polyethylene Synthetic Substitute, Uncemented, Open Approach (ICD-10-PCS; principal; 2018-05-02)
PROC: 0SPB0JZ Removal of Synthetic Substitute from Left Hip Joint, Open Approach (ICD-10-PCS; 2018-05-02)
DX: T84.011A Broken internal left hip prosthesis, initial encounter (principal); D62 Acute posthemorrhagic anemia; Z96.643 Presence of artificial hip joint, bilateral; M17.12 Unilateral primary osteoarthritis, left knee; K21.0 Gastro-esophageal reflux disease with esophagitis; E78.5 Hyperlipidemia, unspecified; I10 Essential (primary) hypertension; Z88.0 Allergy status to penicillin; Z88.6 Allergy status to analgesic agent; F17.210 Nicotine dependence, cigarettes, uncomplicated; R50.82 Postprocedural fever; D64.9 Anemia, unspecified; Z79.82 Long term (current) use of aspirin
CPT/HCPCS: 36415; 85027; C1776; G8978-GP-CK; G8979-GP-CI; G8987-GO-CL; G8988-GO-CJ; J1200; J1956; J2001; J2250; J2405; J2550; J2704; J3010; J3370; J7050

== ENCOUNTER 2018-04-20 09:18 | Outpatient (CLI) | payer BC ==
[2018-04-20 09:55] LABS: #Basophils 0.1 thou/uL (0.0-0.2); #Eosinphils 0.4 thou/uL (0.0-0.7); #Lymphocytes 1.6 thou/uL (1.20-3.40); #Monocytes 0.6 thou/uL (0.11-0.59); %Basophils 1.1 % (0.0-1.0); %Eosinophils 7.2 % (0.0-10.0); %Lymphocytes 28.8 % (21.0-51.0); %Monocytes 9.7 % (0.0-10.0); %Neutrophils 53.2 % (42.0-75.0); Hemoglobin 12.7 g/dL (14.0-18.0); Mean Corpuscular HGB CONC 33.4 g/dL (32.0-36.0); Mean Corpuscular Hemoglobin 29.4 pg (27.0-31.0); Mean Corpuscular Volume 88.1 fL (78.0-98.0); Mean Platelet Volume 8.2 fL (7.4-10.4); Platelet Count 288 thou/uL (130-400); RBC Distribution Width 13.3 % (11.5-14.5); Red Blood Cell (RBC) Count 4.32 mill/uL (4.70-6.10); White Blood Cell (WBC) Count 5.7 thou/uL (4.8-10.8)
[2018-04-20 10:02] LABS: Bilirubin Negative (Negative); Blood, Urine Trace (Negative); Clarity CLEAR (Clear); Glucose, Urine (Dipstick) Negative (Negative); Leukocyte Negative (Negative); Nitrite Negative (Negative); Protein, Urine (Dipstick) Negative (Neg-Trace); Specific Gravity, Urine 1.021 (1.002-1.036); Urobilinogen 0.2 mg/dL (0.2-1.0)
[2018-04-20 10:05] LABS: Bacteria/HPF None Seen HPF (None Seen); Hyaline Casts/LPF 0-3 HYALINE CAST LPF (0-3 Hyaline); Pathc Cast-AUWi Flag 0.14 (0-2.49); Squamous Epithelial None Seen HPF (0-3); WBC/HPF 0-3 HPF (0-3)
[2018-04-20 10:13] LABS: Anion Gap 11 mmol/L (10-20); BUN (Urea Nitrogen) 24 mg/dL (8.4-25.7); Calc. Creatinine Clearance 0 mL/min (70-130); Calcium 9.9 mg/dL (7.8-10.44); Carbon Dioxide 26 mmol/L (22-29); Chloride 108 mmol/L (98-107); Estimated GFR-MDRD 44; Glucose 107 mg/dL (70-105); Potassium 3.8 mmol/L (3.5-5.1); Prothrombin Time 12.9 SEC (12.0-14.7); Sodium 141 mmol/L (136-145)
--- NOTE | 2018-04-21 18:50 | EKG ---
Test Reason : Blood Pressure : / mmHG Vent. Rate : 062 BPM Atrial Rate : 062 BPM P-R Int : 238 ms QRS Dur : 094 ms QT Int : 422 ms P-R-T Axes : 032 -10 022 degrees QTc Int : 428 ms Sinus rhythm with 1st degree A-V block with occasional Premature ventricular complexes and Possible P remature atrial complexes with Abberant conduction Minimal voltage criteria for LVH, may be normal variant Borderline ECG When compared with ECG of 24-FEB-2016 14:15, Premature ventricular complexes are now Present Abberant conduction is now Present Confirmed by Tanisha REYES ([id number]) on 04/21/2018 6:50:02 PM Referred By: CARLITA Confirmed By:Tanisha REYES
== END 2018-04-20 09:19 | disposition home or self-care (01) ==
LOC: LABBT 09:18
PROVIDERS: ATTEND Orthopaedic Surgery
DX: Z01.818 Encounter for other preprocedural examination (principal); T84.018A Broken internal joint prosthesis, other site, initial encounter
CPT/HCPCS: 80048; 81001; 85025; 85610; 87081; 93005; 93010

== ENCOUNTER 2018-04-28 10:36 | Outpatient (CLI) | payer BC ==
--- NOTE | 2018-04-28 11:43 | RAD ---
CHEST PA AND LATERAL: History: 58-year-old male for preoperative evaluation. Comparison: 07-04-17 FINDINGS: Heart size is within normal limits. No confluent pneumonia, overt edema, or pleural effusion. IMPRESSION: No acute intrathoracic disease. Atherosclerosis of the aorta with tortuosity and calcific changes. POS: [facility]
== END 2018-04-28 10:37 | disposition home or self-care (01) ==
LOC: LABBT 10:36
PROVIDERS: ATTEND Orthopaedic Surgery
DX: Z01.818 Encounter for other preprocedural examination (principal); T84.018A Broken internal joint prosthesis, other site, initial encounter; I70.0 Atherosclerosis of aorta
CPT/HCPCS: 71046; 86850; 86900; 86901

== ENCOUNTER 2019-02-06 14:13 | Outpatient (CLI) | payer BC ==
--- NOTE | 2019-02-06 14:32 | RAD ---
EXAM: Chest 2 views: HISTORY: Congestion and fever COMPARISON: 04/28/2018 FINDINGS: There is a normal-sized cardiomediastinal silhouette. There is no evidence of consolidation, mass, or pleural effusion. Degenerative changes are seen in the spine. IMPRESSION: No evidence of acute cardiopulmonary disease
== END 2019-02-06 14:14 | disposition home or self-care (01) ==
LOC: SCSRAD 14:13
PROVIDERS: ATTEND Family Medicine
DX: J20.9 Acute bronchitis, unspecified (principal)
CPT/HCPCS: 71046

== ENCOUNTER 2019-04-18 14:35 | Outpatient (CLI) | payer BC ==
--- NOTE | 2019-04-18 14:30 | RAD ---
PA AND LATERAL VIEWS OF THE CHEST: 04/18/19 HISTORY: Dyspnea. FINDINGS: The heart size is normal. The aorta is tortuous. The lungs are well expanded without lobar consolidat ion, pneumothoraces, or pleural effusions. There are mild degenerative changes in the spine. IMPRESSION: No radiographic evidence of acute cardiopulmonary process. POS: [facility]
== END 2019-04-18 14:36 | disposition home or self-care (01) ==
LOC: RAD 14:35
PROVIDERS: ATTEND Internal Medicine Critical Care Medicine
DX: R06.00 Dyspnea, unspecified (principal)
CPT/HCPCS: 71046

== ENCOUNTER 2020-04-24 06:29 | Outpatient (CLI) | payer BC ==
[2020-04-24 11:28] LABS: #Eosinphils 0.2 10x3/uL (0.0-0.5); #Monocytes 0.5 10x3/uL (0.0-1.1); #Neutrophils 3.9 10x3/uL (1.5-8.4); %Basophils 0.7 % (0.0-2.0); %Eosinophils 2.9 % (0.0-6.0); %Lymphocytes 21.5 % (18.0-47.0); %Neutrophils 65.4 % (40.0-75.0); Mean Corpuscular Volume 90.3 fl (80.0-100.0); Mean Platelet Volume 9.9 fl (7.4-10.4); Platelet Count 325 10x3/uL (130-400); RBC Distribution Width 13.5 % (11.5-14.5); Red Blood Cell (RBC) Count 4.65 10x6/uL (4.40-5.80); White Blood Cell (WBC) Count 5.9 10x3/uL (4.5-11.0)
[2020-04-24 11:38] LABS: Anion Gap 16 mmol/L (10-20); BUN (Urea Nitrogen) 23 mg/dL (8.4-25.7); Calc. Creatinine Clearance 0 mL/min (70-130); Carbon Dioxide 23 mmol/L (22-29); Chloride 109 mmol/L (98-107); Glucose 95 mg/dL (70-105); Potassium 4.7 mmol/L (3.5-5.1); Sodium 143 mmol/L (136-145)
[2020-04-24 11:44] LABS: Prothrombin Time 10.4 sec (9.5-12.1)
[2020-04-24 22:36] LABS: SARS-CoV-2 MS2 Positive; SARS-CoV-2 N Gene Negative; SARS-CoV-2 S Gene Negative; SARS-CoV-2 by NAA Not Detected (NotDetected); SARS-CoV-2 orf1ab Negative
== END 2020-04-24 06:30 | disposition home or self-care (01) ==
LOC: LABBT 06:29
PROVIDERS: ATTEND Orthopaedic Surgery
DX: Z01.818 Encounter for other preprocedural examination (principal); T84.010A Broken internal right hip prosthesis, initial encounter; Z20.828 Contact with and (suspected) exposure to other viral communicable diseases
CPT/HCPCS: 80048; 85025; 85610; 87081; 87635; 93005; 93010; U0003

== ENCOUNTER 2020-04-24 10:30 | Inpatient (IN) | payer BC ==
[2020-04-28 08:45] VITALS: BMI 27.1
[2020-04-29] MEDS ORDERED: Midazolam HCl 2 mg/2 ml Vial ONE (06:26)
[2020-04-29] MEDS ORDERED: Fentanyl 100 MCG/2 ML VIAL ONE ×2 (06:26→13:24)
[2020-04-29] MEDS ORDERED: Vancomycin 1.5 GRAM/300 ML BAG ONE (06:27)
[2020-04-29] MEDS ORDERED: Tranexamic Acid 1,000 MG/10 ML VIAL ONE (06:27)
[2020-04-29] MEDS ORDERED: Sodium Chloride 0.9% 100 ML ONE (06:27)
[2020-04-29] MEDS ORDERED: Levofloxacin 500 mg/D5W 100 ml Premix Bag ONE (06:27)
[2020-04-29] MEDS ORDERED: Fentanyl 100 MCG/2 ML VIAL SLOW IVP PRN ×2 (06:53)
[2020-04-29] MEDS ORDERED: HYDROcodone/Acetaminophen 10/325 mg Tablet PO PRN ×2 (06:53)
[2020-04-29] MEDS ORDERED: Zolpidem Tartrate 5 MG TAB PO PRN ×2 (06:53→07:15)
[2020-04-29] MEDS ORDERED: Ondansetron PF 4 MG/2 ML Vial IVP PRN ×2 (06:53→07:15)
[2020-04-29] MEDS ORDERED: Acetaminophen 325 MG TAB PO PRN (06:53)
[2020-04-29] MEDS ORDERED: diphenhydrAMINE 25 MG CAP PO PRN (06:53)
[2020-04-29] MEDS ORDERED: Promethazine HCl 25 MG/ML VIAL IM PRN ×3 (06:53→07:54)
[2020-04-29] MEDS ORDERED: Ropivacaine 0.5% HCl/PF (150 MG/30 ML VIAL) ONE (07:11)
[2020-04-29] MEDS ORDERED: diphenhydrAMINE 50 MG/ML VIAL IVP PRN (07:15)
[2020-04-29] MEDS ORDERED: Hydrocerin (Eucerin) Cream 120 gm Jar TOP PRN (07:15)
[2020-04-29] MEDS ORDERED: diphenhydrAMINE 50 MG/ML VIAL IM PRN (07:15)
[2020-04-29] MEDS ORDERED: HYDROcodone/Acetaminophen 5/325 mg Tablet PO PRN (07:15)
[2020-04-29] MEDS ORDERED: Naloxone HCl 0.4 mg/ml Vial IVP PRN (07:15)
[2020-04-29] MEDS ORDERED: traMADol HCl 50 MG TAB PO PRN (07:15)
[2020-04-29] MEDS ORDERED: Promethazine HCl 25 MG SUPP PR PRN (07:15)
[2020-04-29] MEDS ORDERED: Naloxone HCl 0.4 mg/ml Vial IV PRN (07:15)
[2020-04-29] MEDS ORDERED: Lidocaine 1% w/Epinephrine 1:100K 20 ML VIAL ONE (07:25)
[2020-04-29] MEDS ORDERED: Promethazine HCl 25 MG/ML VIAL SLOW IVP PRN (07:54)
[2020-04-29] MEDS ORDERED: Ondansetron HCl/PF 4 MG/2 ML Vial IVP PRN (07:54)
[2020-04-29] MEDS ORDERED: Non-Formulary Item 1 EACH (Cetirizine Hcl [All Day Allergy] 10 MG Capsule) PO SCH (09:00)
[2020-04-29] MEDS ORDERED: Aspirin 81 mg Enteric Coated Tablet PO SCH (09:00)
[2020-04-29] MEDS ORDERED: Non-Formulary Item 1 EACH (Iron [Iron] 18 MG Tablet) PO SCH (09:00)
[2020-04-29] MEDS ORDERED: Non-Formulary Item 1 EACH (Olmesartan Medoxomil [Benicar] 40 MG Tab) PO SCH (09:00)
[2020-04-29] MEDS ORDERED: Non-Formulary Item 1 EACH (Potassium Gluconate [Potassium] 600 MG Tablet) PO SCH (09:00)
[2020-04-29] MEDS ORDERED: ePHEDrine 50 MG/ML VIAL ONE ×2 (09:41→10:02)
[2020-04-29] MEDS ORDERED: PROPOFOL 200 MG/20 ML VIAL ONE (10:02)
[2020-04-29] MEDS ORDERED: Rocuronium Bromide 10 MG/ML (10ML VIAL) ONE (10:02)
[2020-04-29] MEDS ORDERED: Ondansetron PF 4 MG/2 ML Vial ONE (10:02)
[2020-04-29] MEDS ORDERED: Lidocaine 1.5% w/Epi 1:200K 30 ML VIAL (Epid Use) ONE (10:02)
[2020-04-29] MEDS ORDERED: Lidocaine 1% PF 5 ML VIAL ONE (10:02)
--- NOTE | 2020-04-29 10:06 | OP ---
DATE OF PROCEDURE: 04/29/2020 TITLE OF PROCEDURE: Right revision total hip arthroplasty using a Dolliver Voodoo Modular Hip System with a size 17 stem, a 21 body, +10 standard ceramic head with an MDM cup size 46 mm OD and a 56-mm Trident Revision acetabulum with Voodoo Modular liner. TEAM SUPERVISOR: Roni Loza PA-C BLOOD LOSS: About 300. SPECIMEN: Tissue was sent for culture, but fluid appeared to be clear. COMPLICATIONS: None. The railways assistant/co-surgeon was present through the entire procedure and was responsible for providing exposure, tissue retraction and any necessary limb or tissue manipulation required to obtain necessary reduction or hardware placement. The railways assistant/co-surgeon also provided bleeding control, tissue closure, and suturing in conjunction with the primary surgeon. DESCRIPTION OF PROCEDURE: After appropriate consent was obtained, the patient was taken to the operating room where general anesthesia induced. He received vancomycin and Levaquin preoperatively and was placed in the hip pabon device on his lateral side. A standard anterolateral approach was made to the hip. The hip capsular tissue was excised. Hip was dislocated with meticulous care, completely exposed the proximal femur. I then removed the femur with direct compression. I exposed the acetabulum and removed all the pseudocapsule from around the acetabulum with a polyethylene liner and then removed 3 screws from the bone. Hip was removed with Innomed cup removal device. Excellent bone preservation was achieved. Pulsatile lavage irrigation performed, reamed up to 56. A size 56-mm Trident revision cup was placed with excellent press fit. No additional screw fixation was required. The liner was deployed. Attention was then turned to the femur, which was opened with an in-cutter and then followed up to size 17 mm, countersunk this about a centimeter below the greater trochanter, just gave me some leeway either direction. The 17-mm stem was impacted into place. I did lateralize the greater trochanter, reamed to a size 21, just series of trial reductions. Implants were selected as above. I assembled the implants using a torque wrench as per protocol. Hip was reduced and found to be stable throughout the range of motion. Pulsatile lavage irrigation performed. Abductor was repaired with #1 Vicryl, #5 Ethibond, and #2 Vicryl and the IT band was closed with 0 Stratafix, subcu with 2-0 Stratafix, and skin with 3-0 Stratafix and glue. Sterile dressings applied. Job ID: [id number]
--- NOTE | 2020-04-29 10:16 | RAD ---
XR Hip Rt 2-3 View History: Postop hip Comparison: March 12, 2020 Findings: New right longstem hip arthroplasty with cerclage wire. Impression: Satisfactory postoperative appearance.
[2020-04-29] MEDS: Aspirin 81 mg Enteric Coated Tablet PO SCH ×2 (12:21→19:38)
[2020-04-29] MEDS: Ferrous Gluconate 324 MG TAB PO SCH ×2 (12:21→19:38)
[2020-04-29] MEDS: Amlodipine 5 MG TAB PO SCH (12:21)
[2020-04-29] MEDS: Loratadine 10 MG TAB PO SCH ×2 (12:22→13:41)
[2020-04-29] MEDS: Ferrous Sulfate 325 MG TAB PO SCH ×2 (12:22→19:38)
[2020-04-29] MEDS: Losartan 25 MG TAB PO SCH (12:22)
[2020-04-29] MEDS: Multivitamin W/ Minerals 1 TAB PO SCH (12:22)
[2020-04-29] MEDS: Pantoprazole 40 MG GRANULES PACKET PO SCH ×2 (12:23→13:42)
[2020-04-29] MEDS: Potassium Chloride 10 MEQ TAB PO SCH ×2 (12:23→13:43)
[2020-04-29] MEDS: Senokot S 8.6-50 MG TAB PO SCH ×2 (12:23→19:38)
[2020-04-29] MEDS ORDERED: diphenhydrAMINE 25 MG CAP ONE (12:32)
[2020-04-29] MEDS: diphenhydrAMINE 25 MG CAP PO PRN (12:33)
[2020-04-29] MEDS ORDERED: HYDROcodone/Acetaminophen 5/325 mg Tablet ONE (13:26)
[2020-04-29] MEDS ORDERED: Fentanyl 100 MCG/2 ML VIAL SLOW IVP SCH (13:30)
[2020-04-29] MEDS: HYDROcodone/Acetaminophen 5/325 mg Tablet PO PRN ×3 (13:37→22:35)
[2020-04-29] MEDS: Sodium Chloride 0.9% 1,000 ML IV SCH ×2 (13:39→17:38)
[2020-04-29] MEDS: fentaNYL 75 mcg/hour Patch TD SCH (15:54)
[2020-04-29] MEDS: traMADol HCl 50 MG TAB PO PRN (16:39)
[2020-04-29] MEDS ORDERED: Bupivacaine 0.25% HCL 30 ML VIAL ONE (17:56)
[2020-04-29] MEDS ORDERED: Vancomycin 1.5 GRAM/300 ML BAG 1.5 GM in Premix Bag 1 BAG IVPB SCH (19:00)
[2020-04-29] MEDS: Fenofibrate Nanocrystallized 145 MG TAB PO SCH (19:39)
[2020-04-29] MEDS: fentaNYL Citrate/PF 500 MCG, Bupivacaine 10 ML in Sodium Chloride 0.9% 80 ML EPIDURAL SCH (22:30)
[2020-04-30] MEDS: Sodium Chloride 0.9% 1,000 ML IV SCH ×3 (04:11→23:39)
[2020-04-30] MEDS: Acetaminophen 325 MG TAB PO PRN (04:18)
[2020-04-30 05:17] LABS: Mean Corpuscular HGB CONC 33.1 g/dL (32.0-36.0); Mean Corpuscular Hemoglobin 29.1 pg (27.0-31.0); Mean Corpuscular Volume 88.1 fL (78.0-98.0); Mean Platelet Volume 7.6 fL (7.4-10.4); Platelet Count 215 thou/uL (130-400); RBC Distribution Width 12.6 % (11.5-14.5); Red Blood Cell (RBC) Count 3.78 mill/uL (4.70-6.10); White Blood Cell (WBC) Count 7.3 thou/uL (4.8-10.8)
[2020-04-30] MEDS: fentaNYL Citrate/PF 500 MCG, Bupivacaine 10 ML in Sodium Chloride 0.9% 80 ML EPIDURAL SCH ×2 (06:09→15:13)
[2020-04-30] MEDS: HYDROcodone/Acetaminophen 5/325 mg Tablet PO PRN ×2 (06:16→20:50)
[2020-04-30] MEDS: Aspirin 81 mg Enteric Coated Tablet PO SCH ×2 (08:31→20:50)
[2020-04-30] MEDS: Loratadine 10 MG TAB PO SCH (08:31)
[2020-04-30] MEDS: Potassium Chloride 10 MEQ TAB PO SCH (08:31)
[2020-04-30] MEDS: Multivitamin W/ Minerals 1 TAB PO SCH (08:31)
[2020-04-30] MEDS: Ferrous Sulfate 325 MG TAB PO SCH ×2 (08:31→20:50)
[2020-04-30] MEDS: Senokot S 8.6-50 MG TAB PO SCH ×2 (08:31→20:50)
[2020-04-30] MEDS: Losartan 25 MG TAB PO SCH (08:36)
[2020-04-30] MEDS: Ferrous Gluconate 324 MG TAB PO SCH ×2 (08:36→20:50)
[2020-04-30] MEDS: Amlodipine 5 MG TAB PO SCH (08:36)
[2020-04-30] MEDS: Pantoprazole 40 MG GRANULES PACKET PO SCH (08:37)
[2020-04-30] MEDS: Fenofibrate Nanocrystallized 145 MG TAB PO SCH (20:50)
[2020-05-01] MEDS: Acetaminophen 325 MG TAB PO PRN ×2 (00:26→16:30)
[2020-05-01] MEDS: fentaNYL Citrate/PF 500 MCG, Bupivacaine 10 ML in Sodium Chloride 0.9% 80 ML EPIDURAL SCH ×3 (01:07→21:41)
[2020-05-01 05:29] LABS: Hemoglobin 10.2 g/dL (14.0-18.0); Mean Corpuscular HGB CONC 33.1 g/dL (32.0-36.0); Mean Corpuscular Hemoglobin 29.4 pg (27.0-31.0); Mean Corpuscular Volume 88.6 fL (78.0-98.0); Mean Platelet Volume 7.7 fL (7.4-10.4); Platelet Count 203 thou/uL (130-400); RBC Distribution Width 12.6 % (11.5-14.5); Red Blood Cell (RBC) Count 3.49 mill/uL (4.70-6.10); White Blood Cell (WBC) Count 8.3 thou/uL (4.8-10.8)
[2020-05-01] MEDS: Amlodipine 5 MG TAB PO SCH (08:43)
[2020-05-01] MEDS: Ferrous Gluconate 324 MG TAB PO SCH ×2 (08:47→20:13)
[2020-05-01] MEDS: Losartan 25 MG TAB PO SCH (08:48)
[2020-05-01] MEDS: Senokot S 8.6-50 MG TAB PO SCH ×2 (08:51→20:13)
[2020-05-01] MEDS: Potassium Chloride 10 MEQ TAB PO SCH (08:51)
[2020-05-01] MEDS: Loratadine 10 MG TAB PO SCH (08:51)
[2020-05-01] MEDS: Ferrous Sulfate 325 MG TAB PO SCH ×2 (08:51→20:13)
[2020-05-01] MEDS: Multivitamin W/ Minerals 1 TAB PO SCH (08:51)
[2020-05-01] MEDS: Aspirin 81 mg Enteric Coated Tablet PO SCH ×2 (08:52→20:13)
[2020-05-01] MEDS: Pantoprazole 40 MG GRANULES PACKET PO SCH (08:53)
[2020-05-01] MEDS: Sodium Chloride 0.9% 1,000 ML IV SCH ×2 (09:01→16:56)
[2020-05-01] MEDS: diphenhydrAMINE 25 MG CAP PO PRN ×2 (11:09→21:48)
--- NOTE | 2020-05-01 12:36 | PRG ---
DATE OF SERVICE: 05/01/2020 SUBJECTIVE: Jayson is a 60-year-old male postop day 2 from a revision right total hip arthroplasty. He run some episodic fevers and little bit of nausea. He is ambulating well and he feels relatively well, but he is still having a little bit of nausea. There is a subjective history of a contact of COVID positive individuals just prior to surgery, but after his COVID test was taken for preadmission. Due to this gap and mild temperatures, I will go ahead and obtain a COVID test inpatient. OBJECTIVE: VITAL SIGNS: Temperature 100.4, pulse 101, respiratory rate 20, blood pressure 110/60. GENERAL: He is alert, responsive, and appropriate with examiner. He does look a little washed out. Incision is clean. No erythema. No malrotation or shortening. LABORATORY DATA: Hemoglobin 10, hematocrit 30.9. IMPRESSION: 1. A 60-year-old male, postop day two, revision right total hip arthroplasty. 2. Questionable COVID exposure and unexplainable temperature elevation. PLAN: Going to obtain a COVID test while he is here, but he will stay another night and I will plan for discharge home tomorrow. Job ID: [id number]
[2020-05-01] MEDS: Fenofibrate Nanocrystallized 145 MG TAB PO SCH (20:13)
[2020-05-01 20:25] LABS: SARS-CoV-2 MS2 Positive; SARS-CoV-2 N Gene Negative; SARS-CoV-2 S Gene Negative; SARS-CoV-2 by NAA Not Detected (NotDetected); SARS-CoV-2 orf1ab Negative
[2020-05-02] MEDS: Acetaminophen 325 MG TAB PO PRN (01:13)
[2020-05-02 05:34] LABS: Hemoglobin 10.7 g/dL (14.0-18.0); Mean Corpuscular Hemoglobin 29.6 pg (27.0-31.0); Mean Corpuscular Volume 89.7 fL (78.0-98.0); Mean Platelet Volume 7.7 fL (7.4-10.4); Platelet Count 206 thou/uL (130-400); RBC Distribution Width 12.4 % (11.5-14.5); Red Blood Cell (RBC) Count 3.63 mill/uL (4.70-6.10); White Blood Cell (WBC) Count 9.2 thou/uL (4.8-10.8)
[2020-05-02] MEDS: Sodium Chloride 0.9% 1,000 ML IV SCH (07:57)
[2020-05-02] MEDS ORDERED: HYDROcodone/Acetaminophen 10/325 mg Tablet PO PRN (08:13)
[2020-05-02] MEDS: HYDROcodone/Acetaminophen 10/325 mg Tablet PO PRN ×2 (08:32→12:50)
[2020-05-02] MEDS: Potassium Chloride 10 MEQ TAB PO SCH (08:33)
[2020-05-02] MEDS: Senokot S 8.6-50 MG TAB PO SCH (08:34)
[2020-05-02] MEDS: Aspirin 81 mg Enteric Coated Tablet PO SCH (08:34)
[2020-05-02] MEDS: Loratadine 10 MG TAB PO SCH (08:35)
[2020-05-02] MEDS: Ferrous Gluconate 324 MG TAB PO SCH (08:35)
[2020-05-02] MEDS: Ferrous Sulfate 325 MG TAB PO SCH (08:35)
[2020-05-02] MEDS: Multivitamin W/ Minerals 1 TAB PO SCH (08:35)
[2020-05-02] MEDS: Amlodipine 5 MG TAB PO SCH (08:35)
[2020-05-02] MEDS: Losartan 25 MG TAB PO SCH (08:36)
[2020-05-02] MEDS: Pantoprazole 40 MG GRANULES PACKET PO SCH (08:36)
[2020-05-02] MEDS: fentaNYL 75 mcg/hour Patch TD SCH (08:50)
[2020-05-02] MEDS ORDERED: fentaNYL 75 mcg/hour Patch TD SCH (09:00)
[2020-05-02] MEDS: traMADol HCl 50 MG TAB PO PRN (11:47)
[2020-05-02 12:09] VITALS: BP 128/68; TEMP 98.9
[2020-05-02] MEDS ORDERED: Ketorolac Tromethamine 30 MG/ML VIAL ONE (12:49)
[2020-05-02] MEDS ORDERED: Ketorolac Tromethamine 30 MG/ML VIAL IVP SCH (13:15)
== END 2020-05-02 15:25 | disposition home or self-care (01) | DRG 468 ==
LOC: SURG A 04-29 05:44 → SJJU 04-29 15:32
PROVIDERS: ADMIT Orthopaedic Surgery; ATTEND Orthopaedic Surgery
PROC: 0SR903A Replacement of Right Hip Joint with Ceramic Synthetic Substitute, Uncemented, Open Approach (ICD-10-PCS; principal; 2020-04-29)
PROC: 0SP90JZ Removal of Synthetic Substitute from Right Hip Joint, Open Approach (ICD-10-PCS; 2020-04-29)
DX: T84.010A Broken internal right hip prosthesis, initial encounter (principal); Y83.8 Other surgical procedures as the cause of abnormal reaction of the patient, or of later complication, without mention of misadventure at the time of the procedure; Z20.828 Contact with and (suspected) exposure to other viral communicable diseases; I10 Essential (primary) hypertension; E78.5 Hyperlipidemia, unspecified; K27.9 Peptic ulcer, site unspecified, unspecified as acute or chronic, without hemorrhage or perforation; J30.2 Other seasonal allergic rhinitis; M19.90 Unspecified osteoarthritis, unspecified site; Z87.891 Personal history of nicotine dependence; Z79.899 Other long term (current) drug therapy; Z88.0 Allergy status to penicillin; Z88.6 Allergy status to analgesic agent
CPT/HCPCS: 36415; 85027; 87070; 87205; 87635; C1776; J1885; J1956; J2001; J2250; J2405; J2704; J2795; J3010; J3370; J3490; Q0163; S0020; U0003

== ENCOUNTER 2021-05-14 15:00 | Outpatient (CLI) | payer BC ==
[2021-05-14 16:23] LABS: #Basophils 0.1 10x3/uL (0.0-0.2); #Eosinphils 0.2 10x3/uL (0.0-0.5); #Monocytes 0.6 10x3/uL (0.0-1.1); %Basophils 0.9 % (0.0-2.0); %Eosinophils 2.7 % (0.0-6.0); %Lymphocytes 23.5 % (18.0-47.0); %Monocytes 7.7 % (0.0-10.0); %Neutrophils 64.3 % (40.0-75.0); Mean Corpuscular HGB CONC 31.8 g/dL (32.0-36.0); Mean Corpuscular Hemoglobin 28.8 pg (27.0-33.0); Mean Corpuscular Volume 90.5 fl (81.2-95.1); Mean Platelet Volume 10.6 fl (7.4-10.4); Platelet Count 331 10x3/uL (150-450); RBC Distribution Width 14.4 % (11.5-14.5); Red Blood Cell (RBC) Count 4.52 10x6/uL (4.32-5.72); White Blood Cell (WBC) Count 7.8 10x3/uL (3.5-10.5)
[2021-05-14 16:28] LABS: Prothrombin Time 11.1 sec (9.5-12.1)
[2021-05-14 16:37] LABS: Anion Gap 15 mmol/L (10-20); BUN (Urea Nitrogen) 31 mg/dL (8.4-25.7); Calc. Creatinine Clearance 0 mL/min (70-130); Calcium 9.7 mg/dL (7.8-10.44); Carbon Dioxide 24 mmol/L (22-29); Chloride 108 mmol/L (98-107); Glucose 133 mg/dL (70-105); Sodium 142 mmol/L (136-145)
[2021-05-15 11:37] LABS: SARS-CoV-2 PCR by NAA Not Detected (NotDetected)
== END 2021-05-14 15:01 | disposition home or self-care (01) ==
LOC: LABBT 15:00
PROVIDERS: ATTEND Orthopaedic Surgery
DX: Z01.818 Encounter for other preprocedural examination (principal); M17.12 Unilateral primary osteoarthritis, left knee; Z20.822 Contact with and (suspected) exposure to COVID-19
CPT/HCPCS: 80048; 85025; 85610; 87081; 93005; 93010; U0003; U0005

== ENCOUNTER 2021-05-19 05:45 | Inpatient (IN) | payer BC ==
[2021-05-13 10:45] VITALS: BMI 27.7
[2021-05-19] MEDS ORDERED: Levofloxacin 500 mg/D5W 100 ml Premix Bag ONE (06:17)
[2021-05-19] MEDS ORDERED: Tranexamic Acid 1,000 MG/10 ML VIAL ONE (06:17)
[2021-05-19] MEDS ORDERED: Sodium Chloride 0.9% 100 ML ONE (06:17)
[2021-05-19] MEDS ORDERED: Fentanyl 100 MCG/2 ML VIAL ONE ×4 (06:24→09:58)
[2021-05-19] MEDS ORDERED: Lidocaine 2% Jelly 5 ML TUBE ONE (06:24)
[2021-05-19] MEDS ORDERED: Midazolam HCl 2 mg/2 ml Vial ONE (06:34)
[2021-05-19] MEDS ORDERED: Fentanyl 100 MCG/2 ML VIAL SLOW IVP PRN ×2 (06:55)
[2021-05-19] MEDS ORDERED: Ondansetron PF 4 MG/2 ML Vial IVP PRN ×2 (06:55→09:15)
[2021-05-19] MEDS ORDERED: HYDROcodone/Acetaminophen 10/325 mg Tablet PO PRN ×3 (06:55→08:15)
[2021-05-19] MEDS ORDERED: Acetaminophen 325 MG TAB PO PRN (06:55)
[2021-05-19] MEDS ORDERED: Promethazine HCl 25 MG/ML VIAL IM PRN ×3 (06:55→09:15)
[2021-05-19] MEDS ORDERED: diphenhydrAMINE 25 MG CAP PO PRN (06:55)
[2021-05-19] MEDS ORDERED: Zolpidem Tartrate 5 MG TAB PO PRN ×2 (06:55→09:15)
[2021-05-19] MEDS ORDERED: [UNRECOGNIZED DRUG - OTHER] PO PRN (06:58)
[2021-05-19] MEDS ORDERED: HYDROCODONE PO PRN (06:58)
[2021-05-19] MEDS ORDERED: ACETAMINOPHEN PO PRN (06:58)
[2021-05-19] MEDS ORDERED: Aspirin 81 mg Enteric Coated Tablet PO PRN (06:58)
[2021-05-19] MEDS ORDERED: Bupivacaine PF 0.5% 30 ML VIAL ONE (07:00)
[2021-05-19] MEDS ORDERED: Vancomycin 1.5 GRAM/300 ML BAG 1.5 GM in Premix Bag 1 BAG IVPB SCH (07:15)
[2021-05-19] MEDS ORDERED: Ondansetron PF 4 MG/2 ML Vial ONE (07:22)
[2021-05-19] MEDS ORDERED: Dexamethasone 20 MG/5 ML VIAL ONE (07:22)
[2021-05-19] MEDS ORDERED: Bupivacaine HCl 0.5%/Epinephrine 1:200,000/PF 30 ml Vial ONE (07:22)
[2021-05-19] MEDS ORDERED: Lidocaine 1% PF 5 ML VIAL ONE (07:22)
[2021-05-19] MEDS ORDERED: PROPOFOL 200 MG/20 ML VIAL ONE (07:22)
[2021-05-19] MEDS ORDERED: Promethazine HCl 25 MG/ML VIAL IVPB PRN (08:51)
[2021-05-19] MEDS ORDERED: Ondansetron HCl/PF 4 MG/2 ML Vial IVP PRN (08:51)
[2021-05-19] MEDS ORDERED: Non-Formulary Item 1 EACH (Iron [Iron] 18 MG Tablet) PO SCH (09:00)
[2021-05-19] MEDS ORDERED: TESTOSTERONE TOP SCH (09:00)
[2021-05-19] MEDS ORDERED: Ferrous Gluconate 324 MG TAB PO SCH (09:00)
[2021-05-19] MEDS ORDERED: Non-Formulary Item 1 EACH (Famotidine [Pepcid] 40 MG Tablet) PO SCH (09:00)
[2021-05-19] MEDS ORDERED: Ropivacaine 0.2% 550 ML 550 ML NERVE BLCK SCH (09:15)
[2021-05-19] MEDS ORDERED: traMADol HCl 50 MG TAB PO PRN (09:15)
[2021-05-19] MEDS ORDERED: Promethazine HCl 25 MG/ML VIAL ONE (09:26)
[2021-05-19] MEDS ORDERED: Meperidine HCl/PF 25 MG/ML VIAL ONE (09:26)
[2021-05-19] MEDS: Amlodipine 5 MG TAB PO SCH (12:42)
[2021-05-19] MEDS: Potassium Chloride 10 MEQ TAB PO SCH (12:42)
[2021-05-19] MEDS: Aspirin 81 mg Enteric Coated Tablet PO SCH ×2 (12:42→20:24)
[2021-05-19] MEDS: Famotidine 20 MG TAB PO SCH ×2 (12:42→20:24)
[2021-05-19] MEDS: Ferrous Sulfate 325 MG TAB PO SCH (12:42)
[2021-05-19] MEDS: Loratadine 10 MG TAB PO SCH (12:42)
[2021-05-19] MEDS: Losartan 25 MG TAB PO SCH (12:43)
[2021-05-19] MEDS: Tamsulosin HCl 0.4 MG CAP PO SCH (12:43)
[2021-05-19] MEDS: HYDROcodone/Acetaminophen 10/325 mg Tablet PO SCH ×3 (12:48→20:24)
[2021-05-19] MEDS: Sodium Chloride 0.9% 1,000 ML IV SCH ×3 (13:48→22:02)
[2021-05-19] MEDS ORDERED: CEFAZOLIN 2 GM in Premix Bag 1 BAG IVPB SCH (14:00)
[2021-05-19] MEDS: ceFAZolin Sodium/D5W 2 GM in Premix Bag 1 BAG IVPB SCH ×2 (14:42→20:24)
[2021-05-19] MEDS: traMADol HCl 50 MG TAB PO PRN ×2 (14:49→21:05)
[2021-05-19] MEDS: Fentanyl 100 MCG/2 ML VIAL IV PRN (18:59)
[2021-05-19] MEDS: Fenofibrate Nanocrystallized 145 MG TAB PO SCH ×2 (20:25→22:33)
[2021-05-20] MEDS: HYDROcodone/Acetaminophen 10/325 mg Tablet PO SCH ×5 (00:28→17:19)
[2021-05-20] MEDS: traMADol HCl 50 MG TAB PO PRN ×2 (02:49→12:13)
[2021-05-20 04:40] LABS: Hemoglobin 10.6 g/dL (14.0-18.0); Mean Corpuscular HGB CONC 34.1 g/dL (32.0-36.0); Mean Corpuscular Hemoglobin 30.7 pg (27.0-31.0); Mean Platelet Volume 7.8 fL (7.4-10.4); Platelet Count 245 thou/uL (130-400); RBC Distribution Width 13.1 % (11.5-14.5); Red Blood Cell (RBC) Count 3.45 mill/uL (4.70-6.10); White Blood Cell (WBC) Count 11.6 thou/uL (4.8-10.8)
[2021-05-20] MEDS ORDERED: fentaNYL 75 mcg/hour Patch TD SCH (06:00)
[2021-05-20] MEDS: Senokot S 8.6-50 MG TAB PO SCH ×2 (09:23→21:31)
[2021-05-20] MEDS: Ferrous Sulfate 325 MG TAB PO SCH (09:23)
[2021-05-20] MEDS: Tamsulosin HCl 0.4 MG CAP PO SCH (09:23)
[2021-05-20] MEDS: Aspirin 81 mg Enteric Coated Tablet PO SCH (09:24)
[2021-05-20] MEDS: Famotidine 20 MG TAB PO SCH ×2 (09:24→21:30)
[2021-05-20] MEDS: Amlodipine 5 MG TAB PO SCH (09:25)
[2021-05-20] MEDS: Losartan 25 MG TAB PO SCH (09:26)
[2021-05-20] MEDS: Multivitamin W/ Minerals 1 TAB PO SCH (09:26)
[2021-05-20] MEDS: Potassium Chloride 10 MEQ TAB PO SCH (09:27)
[2021-05-20] MEDS: Loratadine 10 MG TAB PO SCH (09:27)
[2021-05-20] MEDS: Fentanyl 100 MCG/2 ML VIAL IV PRN ×3 (09:32→15:46)
[2021-05-20] MEDS ORDERED: Calcium Carbonate 500 MG ChewTAB PO SCH (11:45)
[2021-05-20] MEDS ORDERED: Calcium Carbonate 500 MG ChewTAB PO PRN (11:52)
[2021-05-20] MEDS ORDERED: Aspirin 81 mg Enteric Coated Tablet PO PRN (17:36)
[2021-05-20] MEDS ORDERED: Ketorolac Tromethamine 30 MG/ML VIAL IVP SCH (18:00)
[2021-05-20] MEDS ORDERED: diphenhydrAMINE 25 MG CAP PO PRN (18:05)
[2021-05-20] MEDS ORDERED: Ondansetron PF 4 MG/2 ML Vial IVP PRN (18:05)
[2021-05-20] MEDS ORDERED: fentaNYL Citrate/PF 2,000 MCG in Sodium Chloride 0.9% 60 ML IV PRN (18:05)
[2021-05-20] MEDS ORDERED: Naloxone HCl 0.4 mg/ml Vial IV PRN (18:05)
[2021-05-20] MEDS ORDERED: diphenhydrAMINE 50 MG/ML VIAL IVP PRN (18:05)
[2021-05-20] MEDS ORDERED: diphenhydrAMINE 50 MG/ML VIAL IM PRN (18:05)
[2021-05-20] MEDS ORDERED: Promethazine HCl 25 MG/ML VIAL IM PRN (18:05)
[2021-05-20] MEDS ORDERED: Zolpidem Tartrate 5 MG TAB PO PRN (18:05)
[2021-05-20] MEDS ORDERED: Communication Order-Pharmacy FS SCH (18:15)
[2021-05-20] MEDS: Sodium Chloride 0.9% 1,000 ML IV SCH (18:25)
[2021-05-20] MEDS: Fenofibrate Nanocrystallized 145 MG TAB PO SCH (21:31)
[2021-05-21] MEDS ORDERED: fentaNYL Citrate/PF 2,000 MCG in Sodium Chloride 0.9% 60 ML IV PRN ×2 (00:28→12:03)
[2021-05-21] MEDS: Sodium Chloride 0.9% 1,000 ML IV SCH ×3 (03:07→21:45)
[2021-05-21 06:20] LABS: Hemoglobin 10.8 g/dL (14.0-18.0); Mean Corpuscular HGB CONC 33.6 g/dL (32.0-36.0); Mean Corpuscular Hemoglobin 30.5 pg (27.0-31.0); Mean Corpuscular Volume 90.8 fL (78.0-98.0); Mean Platelet Volume 7.9 fL (7.4-10.4); Platelet Count 248 thou/uL (130-400); RBC Distribution Width 13.2 % (11.5-14.5); Red Blood Cell (RBC) Count 3.53 mill/uL (4.70-6.10); White Blood Cell (WBC) Count 9.7 thou/uL (4.8-10.8)
[2021-05-21] MEDS ORDERED: Ropivacaine 0.2% 550 ML 550 ML NERVE BLCK SCH (08:30)
[2021-05-21] MEDS: Ferrous Sulfate 325 MG TAB PO SCH (10:02)
[2021-05-21] MEDS: Senokot S 8.6-50 MG TAB PO SCH ×2 (10:02→21:43)
[2021-05-21] MEDS: Potassium Chloride 10 MEQ TAB PO SCH (10:02)
[2021-05-21] MEDS: Multivitamin W/ Minerals 1 TAB PO SCH (10:03)
[2021-05-21] MEDS: Losartan 25 MG TAB PO SCH (10:03)
[2021-05-21] MEDS: Amlodipine 5 MG TAB PO SCH ×2 (10:05→10:06)
[2021-05-21] MEDS: Famotidine 20 MG TAB PO SCH ×2 (10:06→21:43)
[2021-05-21] MEDS: Loratadine 10 MG TAB PO SCH (10:06)
[2021-05-21] MEDS: Tamsulosin HCl 0.4 MG CAP PO SCH (10:07)
[2021-05-21] MEDS: Fenofibrate Nanocrystallized 145 MG TAB PO SCH (21:44)
[2021-05-22] MEDS: Sodium Chloride 0.9% 1,000 ML IV SCH ×2 (06:40→11:47)
[2021-05-22 07:00] LABS: Mean Corpuscular HGB CONC 33.8 g/dL (32.0-36.0); Mean Corpuscular Hemoglobin 30.5 pg (27.0-31.0); Mean Corpuscular Volume 90.3 fL (78.0-98.0); Platelet Count 258 thou/uL (130-400); RBC Distribution Width 13.2 % (11.5-14.5); White Blood Cell (WBC) Count 10.7 thou/uL (4.8-10.8)
[2021-05-22] MEDS ORDERED: HYDROcodone/Acetaminophen 10/325 mg Tablet PO PRN (08:28)
[2021-05-22] MEDS ORDERED: traMADol HCl 50 MG TAB PO PRN ×2 (08:29)
[2021-05-22] MEDS: HYDROcodone/Acetaminophen 10/325 mg Tablet PO PRN ×2 (08:45→13:18)
[2021-05-22] MEDS: Multivitamin W/ Minerals 1 TAB PO SCH (08:46)
[2021-05-22] MEDS: Ferrous Sulfate 325 MG TAB PO SCH (08:47)
[2021-05-22] MEDS: Potassium Chloride 10 MEQ TAB PO SCH (08:47)
[2021-05-22] MEDS: Senokot S 8.6-50 MG TAB PO SCH (08:47)
[2021-05-22] MEDS: Losartan 25 MG TAB PO SCH (08:48)
[2021-05-22] MEDS: Famotidine 20 MG TAB PO SCH (08:48)
[2021-05-22] MEDS: Tamsulosin HCl 0.4 MG CAP PO SCH (08:48)
[2021-05-22] MEDS: Loratadine 10 MG TAB PO SCH (08:57)
[2021-05-22] MEDS ORDERED: fentaNYL 75 mcg/hour Patch TD SCH (09:00)
[2021-05-22] MEDS ORDERED: Milk Of Magnesia 30 ML UDCUP PO SCH (12:00)
[2021-05-22] MEDS ORDERED: Fentanyl 100 MCG/2 ML VIAL SLOW IVP PRN (12:57)
[2021-05-22 16:31] VITALS: BP 121/82; TEMP 98.8
== END 2021-05-22 17:00 | disposition home or self-care (01) | DRG 470 ==
LOC: SDC 05:45 → SJJU 06:55 → SDC 13:07 → OBSVTOIN 05-20 16:40
PROVIDERS: ADMIT Orthopaedic Surgery; ATTEND Orthopaedic Surgery
PROC: 0SRD0J9 Replacement of Left Knee Joint with Synthetic Substitute, Cemented, Open Approach (ICD-10-PCS; principal; 2021-05-19)
DX: M17.12 Unilateral primary osteoarthritis, left knee (principal)
CPT/HCPCS: 36415; 76770; 85027; A4306; C1713; C1776; J1100; J1956; J2175; J2250; J2405; J2550; J2704; J2795; J3010; J3370; J3490; J7050; S0020

== ENCOUNTER 2024-12-27 15:24 | Outpatient (CLI) | payer BC | END 2024-12-27 15:25 | disposition home or self-care (01) | LOC: BICULT 15:24 | DX: N18.4 Chronic kidney disease, stage 4 (severe) (principal); N28.89 Other specified disorders of kidney and ureter | CPT/HCPCS: 76770 ==